=== PATIENT | male | born 1955 | race Caucasian/White ===

== ENCOUNTER → 2024-07-10 | Outpatient (CLI) | payer OTHER ==
[~2024-07-10] MED LIST: COMPLETE MULTI1 TAB PO; FLOMAX 0.40.4 MG/CAP PO; MOTRIN 200200 MG/TAB PO; ROXICODONE 55 MG/TAB PO
== END ==
LOC: COL.RAD 14:56
DX: N20.1 Calculus of ureter (principal); N13.30 Unspecified hydronephrosis; N32.9 Bladder disorder, unspecified; N17.9 Acute kidney failure, unspecified; R31.29 Other microscopic hematuria

== ENCOUNTER 2024-07-13 06:27 | Day surgery (SDC) | payer OTHER ==
[2024-07-13] VITALS (10 sets, daily range): BP systolic 136–159; BP diastolic 68–87; PULSE 54–70; TEMP 97.6–97.7
[~2024-07-13] VITALS: Ht 170.2 cm; Wt 63.1 kg
--- NOTE | 2024-07-13 07:00 | NUR ---
PT ARRIVED TO ROOM 328 FOR OUTPT SURGERY, DR DIGGS NOTIFIED PER PHONE OF NO ORDERS AVAILABLE, IV PLACED IN RH, ADMISSION ASSESSMENT COMPLETE, ORIENTED TO ROOM AND POC. CHANGED INTO GOWN AND NON SLIP SOCKS, SPOUSE AT BEDSIDE. REPORT GIVEN TO RACHEL DODD DAYSHIFT NURSE
[2024-07-13] MEDS ORDERED: FLOMAX 0.40.4 MG/CAP PO (07:19)
[2024-07-13] MEDS ORDERED: MOTRIN 200200 MG/TAB PO (07:20)
[2024-07-13] MEDS ORDERED: COMPLETE MULTI1 TAB PO (07:21)
[2024-07-13] MEDS ORDERED: Lidocaine PF 2% (20 MG/ML) 5 ML VIAL ONE (07:54)
[2024-07-13] MEDS ORDERED: fentaNYL 50 MCG/ML 2 ML VIAL ONE (07:55)
[2024-07-13] MEDS ORDERED: NS 10 ML IV ONE (07:56)
--- NOTE | 2024-07-13 08:10 | NUR ---
PATIENT TO THE OR WITH FRANCOIS. PRE OP CHECK LIST AND MED REC COMPLETED PRIOR TO GOING TO THE OR
[2024-07-13] MEDS ORDERED: LR 1,000 ML IV SCH (08:15)
[2024-07-13] MEDS ORDERED: dexAMETHasone 10 MG/ML VIAL ONE (08:25)
[2024-07-13] MEDS ORDERED: Ondansetron 4 MG/2 ML VIAL ONE (08:25)
[2024-07-13] MEDS ORDERED: Glycopyrrolate 0.2 MG/ML 1 ML VIAL ONE (08:39)
[2024-07-13] MEDS ORDERED: hydrALAZINE 20 MG/ML 1 ML VIAL IV PRN (08:45)
[2024-07-13] MEDS ORDERED: fentaNYL 50 MCG/ML 1 ML SYRINGE/VIAL [PACU/SDC ONLY] IV PRN (08:45)
[2024-07-13] MEDS ORDERED: Ondansetron 4 MG/2 ML VIAL IV PRN (08:45)
[2024-07-13] MEDS ORDERED: HYDROmorphone 1 MG/1 ML SYRINGE [PACU/SDC ONLY] IV PRN (08:45)
[2024-07-13] MEDS ORDERED: Meperidine 50 MG/ML 1 ML VIAL IV PRN (08:45)
[2024-07-13] MEDS ORDERED: Lidocaine 2% (20 MG/ML) 20 ML UROJET UR ONE (08:47)
[2024-07-13] MEDS ORDERED: Hyoscyamine 0.125 MG Sublingual TAB SL PRN (09:15)
[2024-07-13] MEDS ORDERED: oxyCODONE/Acetaminophen 5-325 MG TAB PO PRN (09:15)
[2024-07-13] MEDS ORDERED: Ketorolac 15 MG/ML VIAL IV PRN (09:15)
[2024-07-13] MEDS ORDERED: ROXICODONE 55 MG/TAB PO (09:20)
--- NOTE | 2024-07-13 10:30 | NUR ---
PATIENT RETURNS FROM THE OR, UNABLE TO VOID. HAVING INCREASED PAIN. MEDICATIONS ORDERED.
--- NOTE | 2024-07-13 12:10 | NUR ---
nutrition services worker met with patient and patient's Debora Booker# [phone] at bedside to discuss discharge planning. Patient stated that he lives with his [place]. Patient explained that he does not have DPOA paperwork for his at this time, but declined SW offer to assist with forms. Patient relayed that his PCP is Dr. Hernández and that his pharmacy is [facility]. Patient declined any difficulty accessing or affording medications. At home, the patient states that he is independent in ADLs and transportation, and that the only medical devices that he utilizes is hearing aids. Patient denied any concerns regarding discharge at this time. Plan: D/C Home
--- NOTE | 2024-07-13 12:32 | NUR ---
Data: Patient declined spiritual care visit offered during Securities Adviser rounds. Patient was watching [employer] football. Hopes to discharge today. Assessment: None. Patient declined. Plan of Care: Chaplains will remain available as requested while Patient is admitted to this hospital.
--- NOTE | 2024-07-13 16:09 | NUR ---
PATIENT WAS UNABLE TO VOID. BLADDER SCANNED. OVER 575MLS. DR. DIGGS WAS NOTIFED AND ORDERS OBTAINED. 18F COUDE INSERTED PER ORDERS. PATIENT TOLERATED ORDERED. YOUNGBLOOD EDUCATION GIVEN WITH DISCHARGE EDUCATION. PATIENT WAS ABLE TO DRAIN BAG INDEPENDENTLY. UNDERSTANDING THE IMPORTANCE OF HYGIENE. ALCOHOL WIPES AND SUPPLIES PROVIDED. PATIENT AWARE UROLOGY OFFICE TO CALL FOR STENT AND YOUNGBLOOD REMOVAL. DIET AND ACTIVITY RESTRICTIONS DISCUSSED WELL MEDICATION LIST WITH LAST DOSE TAKEN. SCRIPTS FOR ROXICODONE REVIEWED WITH PATIENT. PATIENT WHEELED OUT WITH ALL BELONGINGS, HIS TAKING HIM HOME. DENIES QUESTIONS OR CONCERNS AT THIS TIME.
== END 2024-07-13 16:25 | disposition home or self-care (01) ==
LOC: SDCO 06:27 → SURG 07:00 → SDCO 08:30 → SURG 16:25
DX: N13.2 Hydronephrosis with renal and ureteral calculous obstruction (principal)
CPT/HCPCS: OP; C1769; C2617; J0690; J1100; J1885; J2405; J2704; J3010